=== PATIENT | female | born 1970 | race Caucasian/White ===

== ENCOUNTER 2023-03-15 16:15 | Inpatient (IN) | payer OTHER, SELFPAY ==
--- NOTE | ~2023-03-15 | XR_ITS ---
XR chest 2V DATE: 03/15/2023 17:16 INDICATION: 10 pound weight gain in one week TECHNIQUE: PA and lateral views COMPARISON: None FINDINGS: There is prominence of the fissures consistent with subpleural edema. There is pulmonary va scular congestion and redistribution and there are extensive bilateral pulmonary infiltrates which ar e more prominent centrally and in the lower lung zones, suggesting pulmonary edema. Pneumonia and les s likely aspiration are not excluded. No apparent pleural effusion. No pneumothorax. Mild bilateral apical capping. Heart size appears within normal range. Scoliosis of the thoracic and lumbar spine. IMPRESSION: Pulmonary vascular congestion, subpleural edema, extensive bilateral pulmonary infiltrate s suggesting pulmonary edema. Pneumonia is not excluded. Reviewed, dictated and finalized at location B. CARE MANAGER IMPRESSION: Pulmonary vascular congestion, subpleural edema, extensive bilatera l pulmonary infiltrates suggesting pulmonary edema. Pneumonia is not excluded.
[2023-03-15 16:17] VITALS: BP 144/91; PULSE 130; RESP 20; TEMP 36.9; O2SAT 93
--- NOTE | 2023-03-15 16:20 | ECG_ITS ---
Measurements Intervals [place] Rate: 123 P: 27 OK: 157 QRS: 5 QRSD: 77 T: 13 QT: 318 QTc: 457 Interpretive Statements SINUS TACHYCARDIA LOW QRS VOLTAGE IN PRECORDIAL LEADS CONSIDER ANTERIOR INFARCT, AGE INDETERMINATE CONSIDER INFERIOR INFARCT, AGE INDETERMINATE ABNORMAL ECG NO PREVIOUS ECG AVAILABLE FOR COMPARISON Electronically Signed On 03-15-2023 18:47:01 YARDING SUPERVISOR by Be Mccann D.O.
[2023-03-15 16:37] LABS: Basophils Absolute Auto 0.1 K/mm3 (0.0-0.1); Basophils Percent Auto 0.3 % (0.2-1.2); Eosinophils Absolute Auto 0.2 K/mm3 (0-0.3); Eosinophils Percent Auto 1.3 % (0-4.4); Hematocrit 32.2 % (37.0-47.0); Hemoglobin 10.2 g/dL (12.0-15.0); Immature Granulocyte Absolute 0.07 K/mm3 (0.00-0.031); Immature Granulocyte Percent A 0.4 % (0-0.5); Lymphocytes Absolute Auto 1.29 K/mm3 (0.9-3.2); Mean Corpuscular HGB Conc 31.7 g/dl (32-36); Mean Corpuscular Hemoglobin 26.4 pg (26-34); Mean Corpuscular Volume 83.2 fl (80-100); Mean Platelet Volume 9.6 fl (7.4-10.4); Monocytes Absolute Auto 0.8 K/mm3 (0.1-0.6); Monocytes Percent Auto 4.7 % (2.6-8.5); Neutrophils Absolute Auto 13.8 K/mm3 (1.3-6.7); Neutrophils Percent Auto 85.3 % (45.5-73.1); Nucleated Red Blood Cells Perc 0.1 % (0.0-0.2); Platelet Count Result 273 k/mm3 (150-375); Red Blood Count 3.87 M/mm3 (4.2-5.4); Red Cell Distribution Width 14.5 % (11.5-14.5); White Blood Count 16.2 K/mm3 (4.5-10.0)
[2023-03-15 16:48] LABS: INR 1.1; Prothrombin Time 14.3 Seconds (11.1-14.7)
[2023-03-15 16:49] LABS: Alanine Aminotransferase 58 U/L (6-35); Albumin Level 4.1 g/dL (3.5-5.1); Alkaline Phosphatase 82 U/L (38-126); Anion Gap 9 mmol/L (8-16); Aspartate Amino Transferase 94 U/L (14-36); Bilirubin,Total 0.6 mg/dL (0.2-1.3); Blood Urea Nitrogen 6 mg/dL (7-17); Calcium 8.6 mg/dL (8.4-10.2); Carbon Dioxide 30 mmol/L (22-30); Chloride 95 mmol/L (98-107); Estimated CRCL calculation 109 ml/min; Estimated Glomerular Filt Rate > 60; Glucose 124 mg/dL (65-110); Partial Thromboplastin Time 26.3 SECONDS (22.3-36.8); Potassium 3.8 mmol/L (3.4-5.0); Sodium 134 mmol/L (137-145)
[2023-03-15 16:59] LABS: NT Pro B Type Natriuretic Pept 588 pg/mL (19.9-100); Troponin I < 0.012 ng/mL (0.000-0.034)
[2023-03-15 18:47] VITALS: BP 111/74; PULSE 120; RESP 20; O2SAT 96
--- NOTE | 2023-03-15 19:22 | ED.GENADULT ---
HPI - General Adult General Chief complaint: Unspecified Stated complaint: swelling to hands Time Seen by Provider: 03/15/23 19:11 History of Present Illness HPI narrative: This is a 52-year-old female fibromyalgia psychiatric illness presenting ED with swelling. Patient notes she has had swelling of her feet hands the last week. He also notes that she is having shortness of breath on exertion. No fever chills chest pain abdominal pain urinary symptoms. No history of CHF. Related Data Allergies Allergy/AdvReac Type Severity Reaction Status Date / Time iodine Allergy Unknown Stopped Verified 03/15/23 18:50 Breathing Penicillins Allergy Unknown Hives Verified 03/15/23 18:50 Sulfa (Sulfonamide Allergy Swelling Verified 03/15/23 18:50 Antibiotics) [facility] Past Medical History Medical History (Updated 03/15/23 @ 21:32 by Danny Chan MD) Bipolar disorder Fibromyalgia Exam Narrative: APPEARANCE: No apparent distress. Head: atraumatic. EYES: EOMI, NOSE: Atraumatic NECK: Trachea midline RESPIRATORY: No increased rate of breathing, scattered crackles at the lung bases CARDIOVASCULAR: Tachycardic, pitting edema of the legs and mild edema hands ABDOMINAL: Non-distended MUSCULOSKELETAl: No obvious deformities NEURO: Alert. Moving 4/4 extremities SKIN:: Warm, dry. Normal color PSYCHIATRIC: Normal affect Course Vital Signs Vital signs: Vital Signs Temperature 98.5 F 03/15/23 16:17 Pulse Rate 130 H 03/15/23 16:17 Respiratory Rate 20 03/15/23 16:17 Blood Pressure 144/91 H 03/15/23 16:17 Pulse Oximetry 93 03/15/23 16:17 Oxygen Delivery Room Air 03/15/23 16:17 Temperature 98.5 F 03/15/23 16:17 Pulse Rate 120 H 03/15/23 18:47 Respiratory Rate 20 03/15/23 18:47 Blood Pressure 111/74 03/15/23 18:47 Pulse Oximetry 94 03/15/23 20:59 Oxygen Delivery Nasal Cannula 03/15/23 20:59 Oxygen Flow Rate 2 03/15/23 20:59 Medical Decision Making MDM Narrative Medical decision making narrative: -Course: This is a 52-year-old female presenting with pitting edema of the lower extremities and dyspnea on exertion. Chest x-ray showed pulmonary edema versus pneumonia. BNP was 588. WBC 16. Attempted point of care echocardiogram but due to patient's body habitus was unable to clearly visualize the heart. Viral swabs negative. Patient will be given Lasix for heart failure and covered for community-acquired pneumonia until a definitive diagnosis is determined. Patient will be admitted the hospital for evaluation. -DDX includes but is not limited to: New onset heart failure, community-acquired interstitial lung disease viral syndrome -Co-morbidities complicating care: Psychiatric illness, fibromyalgia, anxiety -Social determinants of health: Stable due to psychiatric illness, lives in apartment -Independent interpretation of studies: White count 16. Metabolic panel showed slight hyponatremia and hypochloremia. BNP elevated 580. Troponins negative Chest x-ray showed pulmonary edema although pneumonia cannot be excluded. Independent EKG interpretation: Rhythm [sinus], Rate [123], [place] -[normal], [place] -[normal], QRS [narrow], QTC [normal], T waves -[negative for concerning inversions], ST Segments - [Negative for concerning elevations] Final interpretations: Sinus tachycardia -Discussion of Management/Consultants: Chelsea-hospitalist -Interventions: 40 mg IV Lasix, ceftriaxone, azithromycin, Home dose Valium 5 mg for anxiety -Shared decision making / Disposition: Admitted Vital Signs Vital Signs: Vital Signs Temperature 98.5 F 03/15/23 16:17 Pulse Rate 130 H 03/15/23 16:17 Respiratory Rate 03/15/23 16:17 Blood Pressure 144/91 H 03/15/23 16:17 Pulse Oximetry 93 03/15/23 16:17 Oxygen Delivery Room Air 03/15/23 16:17 Temperature 98.5 F 03/15/23 16:17 Pulse Rate 120 H 03/15/23 18:47 Respiratory Rate 03/15/23 18:47 Blood Pressure 111
[2023-03-15 20:59] VITALS: O2SAT 89; O2SAT 94
[2023-03-15] MEDS: FUROSEMIDE INJ 40 MG/4 ML VIAL IV PUSH (21:01)
[2023-03-15 21:14] LABS: Influenza A QL RT-PCR Negative (Negative); Influenza B QL RT-PCR Negative (Negative); RSV RNA, RT-PCR Negative (Negative); SARS-CoV-2 RNA PCR Negative (Negative)
[2023-03-15] MEDS: NICOTINE (*PBKC) 21 MG PATCH 1 PATCH TRANSDERM (22:50)
[2023-03-15] MEDS: AZITHROMYCIN 500 MG/NS 250 ML 500 MG/250 ML BAG 250 MG IVPB (22:50)
--- NOTE | 2023-03-15 23:15 | PC.NURSE ---
Attempted to call Antonietta, pt caregiver at [place], at [phone] in response to her call earlier about an update. No response.
--- NOTE | 2023-03-15 23:37 | PC.NURSE ---
Assumed care of pt from [facility] at this time.
[2023-03-16] VITALS (13 sets, daily range): BP systolic 100–117; BP diastolic 65–68; PULSE 91–145; RESP 17–18; TEMP 36.5–36.9; O2SAT 93–98; BMI 28.9
--- NOTE | 2023-03-16 | ECHO_ITS ---
Patient Info Name: Orquidea Mckeon Age: 52 years : 1970 Gender: Female Ht: 68 in Wt: 190 lbs BSA: 2.05 m2 HR: 94 bpm BP: 117 / 68 mmHg Heart Rhythm: Sinus Rhythm Technical Quality: Fair Exam Date: 03/16/2023 10:07 AM Exam Location: Echo Lab Exam Room: 241 Patient Status: Inpatient Admit Date: 03/15/2023 Staff Ordering Physician: Nelia Tran MD Private Investigator Surveillance: Indira Jones RDCS Attending Provider: Nelia Tran MD Referring Physician: Chelsea KINGSTON; Exam Type: CA echo doppler color flow Study Info Indications - sob Complete two-dimensional, color flow and Doppler transthoracic echocardiogram is performed. Summary 1. Complete two-dimensional, color flow and Doppler transthoracic echocardiogram is performed. 2. Normal left ventricular size and thickness with good contractility of all segments. Estimated ejection fraction 65%. Normal diastolic function. 3. No significant valve disease. 4. Normal estimated pulmonary pressure. 5. Normal sinus rhythm. Left Ventricle Left ventricular chamber dimension is normal. Left ventricular systolic function is normal, estimated at 65-70%. There is no increased left ventricular wall thickness. Left ventricular septal wall motion is normal. The left ventricular diastolic function is normal. Right Ventricle Right ventricular chamber dimension is normal. Right ventricular systolic function is normal. Left Atria Left atrial chamber dimension is normal. Right Atria Right atrial chamber dimension is normal. Aortic Valve The aortic valve is trileaflet. There is no aortic valve sclerosis. There is no aortic valve stenosis. There is no aortic valve regurgitation. Pulmonic Valve The pulmonic valve is normal. There is no pulmonic valve stenosis. There is no pulmonic regurgitation. Mitral Valve The mitral valve has normal leaflets. There is no mitral valve stenosis. There is no mitral valve regurgitation. Tricuspid Valve The tricuspid valve leaflets are normal. There is no significant tricuspid valve stenosis. There is trace tricuspid valve regurgitation. No pulmonary hypertension, estimated pulmonary arterial systolic pressure is 31 mmHg. Pericardium/Pleural The pericardium appears normal. There is no pericardial effusion. Inferior Vena Cava Normal inferior vena cava with >50% collapse upon inspiration consistent with Empty right atrial pressure, 31 mmHg. Aorta The aortic root size at the sinus of Valsalva is normal. The prox ascending aorta size is normal. Left Ventricular Outflow Tract Name Value Normal LVOT 2D LVOT Diameter 2.0 cm LVOT Doppler LVOT Peak Gradient 5 mmHg LVOT Mean Gradient 4 mmHg LVOT VTI 23 cm LVOT VTI/AV VTI Ratio 1.1 LVOT Stroke Volume 70 ml LVOT CO 16.8 l/min LVOT CI 8.2 l/min/m2 Pulmonic Valve Name Value Normal
--- NOTE | 2023-03-16 00:15 | PC.NURSE ---
Pt stated she wanted to leave and did not want to be here anymore when attempting to take pt upstairs. Hospitalist, Dr. Tran notified and stated she would come down to speak to pt.
--- NOTE | 2023-03-16 00:45 | ADMGEN ---
This patient, Orquidea Mckeon, was admitted to Medical Room 241-. Patient/family oriented to hospital policies and general routines including ID bracelet, bed and alarms, visiting hours, pain management, procedures, bathroom and other care routines, personal items, smoking policy, room service/diet, and visiting hours. Information on how to activate the Rapid Response Team has been discussed. Patient/Family are encouraged to report perceived risks to care and to ask questions if they do not understand what they are told or what they should do.
[2023-03-16] MEDS: DULoxetine HCL 60 MG CAPSULE.DR PO (01:07)
[2023-03-16] MEDS: ARIPiprazole 10 MG TABLET 20 MG PO (01:07)
[2023-03-16] MEDS: GABAPENTIN 100 MG CAPSULE PO (01:07)
[2023-03-16] MEDS: LORazepam INJ (*CRX) 2 MG/ML VIAL 1 MG IV PUSH (01:08)
--- NOTE | 2023-03-16 01:27 | PM.IMHP ---
H&P: HPI History of Present Illness Date/Time: 03/16/23 01:27 Chief Complaint: sob Narrative: This is a 52-year-old female with past medical history significant for bipolar disorder, fibromyalgia. Patient presents to the emergency room due to shortness of breath, fevers, chills, night sweats, poor appetite, body aches and pain. Patient tends to be circumstantial can not really contribute much to history taking. Preliminary workup was significant for chest x-ray with lung infiltrates. Patient has been admitted for further evaluation management and treatment XR chest 2V DATE: 03/15/2023 17:16 INDICATION: 10 pound weight gain in one week? TECHNIQUE: PA and lateral views? COMPARISON: None? FINDINGS: There is prominence of the fissures consistent with subpleural edema. There is pulmonary vascular congestion and redistribution and there are extensive bilateral pulmonary infiltrates which are more prominent centrally and in the lower lung zones, suggesting pulmonary edema. Pneumonia and less likely aspiration are not excluded. No apparent pleural effusion. No pneumothorax. Mild bilateral apical capping. Heart size appears within normal range. Scoliosis of the thoracic and lumbar spine. IMPRESSION: Pulmonary vascular congestion, subpleural edema, extensive bilateral pulmonary infiltrates suggesting pulmonary edema. Pneumonia is not excluded.? Review of Systems Constitutional: Constitutional: Reports chills, Reports fatigue, Reports fever(s), Reports malaise, Reports night sweats, Reports poor appetite and Reports weakness Eyes: Eyes: Denies change in vision ENT: Denies dysphagia, Denies otalgia and Denies odynophagia Cardiovascular: Cardiovascular: Denies chest pain, Denies radiating jaw, neck or arm pain and Denies palpitations Respiratory: Respiratory: Denies cough, Denies excessive phlegm production and Reports dyspnea Gastrointestinal: Gastrointestinal: Denies coffee ground emesis, Denies heartburn, Denies diarrhea, Denies nausea and Denies vomiting Genitourinary: Genitourinary: Denies dysuria Musculoskeletal: Musculoskeletal: Reports myalgias Integumentary/Breasts: Skin/Breast: Denies rash Neurologic: Denies abnormal gait, Denies vertigo, Denies dizziness and Denies Sensory deficit (Neuro) Psychiatric: Psychiatric: Reports no additional psychiatric complaints and Reports as per HPI Endocrine: Endocrine: Denies fatigue, Denies heat intolerance, Denies polyphagia, Denies polydipsia, Denies polyuria and Denies palpitations Hematologic/Lymphatic: Hematologic/Lymphatic: Reports no additional hematologic/lymphatic complaints and Reports as per HPI Allergic/Immunologic: Allergic/Immunologic: Reports no additional allergic/immunologic complaints and Reports as per HPI [facility] Past Medical History Medical History (Updated 03/16/23 @ 01:36 by Nelia Tran MD) Bipolar disorder Fibromyalgia Social History Social History Smoking packs per day: 2 Smoking cigarettes per day: 40.0 Smoking status: Former smoker Tobacco type: cigarettes Alcohol intake: never Substance use: never Substance use type: does not use Lack of Transportation: No Lack of Food: Never True Current Housing: I Have Housing Concerned About Future Housing: No Difficulty Paying Gas/Electric Bills: No Difficulty Paying for Meds: No Currently Unemployed: YES Education: High School Diploma/GED Difficulty w/ Childcare or Family Care: No Spiritual care concerns: No Meds Home Medications and Allergies Home Medications Medication Instructions Recorded Confirmed Type Gas Relief (simethicone) 2 tab-cap PO Q12H 03/16/23 03/16/23 History aripiprazole 20 mg tablet 20 mg PO DAILY 03/16/23 03/16/23 History baclofen 10 mg PO PRN PRN Pain 03/16/23 03/16/23 History baclofen 10 mg tablet 10 mg PO DAILY 03/16/23 03/16/23 History buprenorphine 300 mg/1.5 mL 300 mg subcut .MONTHLY 03/16/23 03/16/23 History s
--- NOTE | 2023-03-16 06:04 | PC.NURSE ---
PT KEEPS MISSING U-HAT WHEN URINATING
[2023-03-16] MEDS: BUPRENORPHINE/NALOXONE (*CRX) 4 MG/1 MG SL FILM 1 EACH SUBLINGUAL ×2 (07:48→20:46)
[2023-03-16] MEDS: IBUPROFEN 600 MG TABLET PO ×2 (08:22→12:09)
[2023-03-16] MEDS: diazePAM (*CRX) 5 MG TABLET PO ×2 (08:22→12:09)
[2023-03-16] MEDS: BACLOFEN 10 MG TABLET PO (10:08)
--- NOTE | 2023-03-16 10:16 | PM.IMPN ---
Progress Note: A&P Assessment and Plan (1) Multilobar lung infiltrate: Code(s): R91.8 - Other nonspecific abnormal finding of lung field Status: Acute Assessment and Plan: Started on Rocephin and azithromycin 03/15 for possible community-acquired pneumonia (2) Dyspnea: Code(s): R06.00 - Dyspnea, unspecified Status: Acute Assessment and Plan: Check echo Appears to be at baseline (3) Fibromyalgia: Code(s): M79.7 - Fibromyalgia Status: Acute (4) Bipolar disorder: Code(s): F31.9 - Bipolar disorder, unspecified Status: Acute Assessment and Plan: Patient requesting to be weaned off of medications, will trial lower doses Defer full weaning to outpatient management Plan DVT prophylaxis with SCDs GI prophylaxis not indicated Code status full code Subjective Date/time seen: 03/16/23 10:16 Interval history: 52-year-old female with history of bipolar, fibromyalgia is presenting with edema and currently being treated for possible pneumonia. No overnight events noted. No chest pain or shortness of breath. No nausea, vomiting or diarrhea. No fevers or chills. Patient would like to wean off some of her psychiatric medications that she is taking per chestnut. She states she always feels a little swollen blames the Neurontin for this. She denies cough or shortness of breath. Review of Systems Review of Systems: 12 point review of systems was assessed and was negative except as noted in the HPI Exam Narrative: General: No acute distress, alert and oriented per baseline HEENT: Atraumatic, normocephalic, mucous membranes moist CV: Regular rate and rhythm, S1, S2 Lungs: Clear to auscultation bilaterally, no rales or crackles noted, no wheezes, good air entry Abdomen: Soft, nontender, nondistended Extremities: Normal to inspection Skin: No rashes noted, no lesions or wounds seen Psych: Euthymic, normal affect Objective Data Vital Signs Vital Signs: Vital Signs - 24 hr 03/15/23 16:17 03/15/23 18:47 03/15/23 20:59 Temperature 98.5 F Pulse Rate 130 H 120 H Respiratory Rate 20 20 Blood Pressure 144/91 H 111/74 Pulse Oximetry 93 96 89 L Oxygen Delivery Room Air Room Air Oxygen Flow Rate 03/15/23 20:59 03/16/23 00:50 03/16/23 01:12 Temperature 98.4 F Pulse Rate 100 145 H Respiratory Rate 18 Blood Pressure 117/68 Pulse Oximetry 94 93 Oxygen Delivery Nasal Cannula Oxygen Flow Rate 2 03/16/23 01:24 03/16/23 02:28 03/16/23 04:00 Temperature Pulse Rate 118 H 122 H Respiratory Rate Blood Pressure Pulse Oximetry 97 Oxygen Delivery Nasal Cannula Oxygen Flow Rate 2 03/16/23 06:00 Temperature 97.7 F Pulse Rate 104 H Respiratory Rate 18 Blood Pressure 100/68 Pulse Oximetry 96 Oxygen Delivery Oxygen Flow Rate Intake/Output Intake/Output: Intake & Output 03/13/23 03/14/23 03/15/23 03/16/23 23:59 23:59 23:59 23:59 Intake Total 50 250 Balance 50 250 Meds/Results Medications: Active Medications Generic Name Dose Route Start Last Admin Trade Name Freq PRN Reason Stop Dose Admin Acetaminophen 1,000 mg 03/16/23 01:36 Acetaminophen 500 Mg Tablet PO Q6H PRN Mild Pain (1-3) or Fever Aripiprazole 20 mg 03/16/23 09:00 03/16/23 08:27 Aripiprazole 10 Mg Tablet PO Not Given QAM LESLIE Artificial Tears 1 drop 03/16/23 01:50 Artificial Tears Ophth Soln 15 Ml Bottle EACH EYE Q12H PRN Dry Eye(s) Baclofen 10 mg 03/16/23 09:50 03/16/23 10:08 Baclofen 10 Mg Tablet PO 10 mg DAILY PRN Administration Pain Buprenorphine/Naloxone 1 each 03/16/23 09:00 03/16/23 07:48 Buprenorphine/Naloxone (*Crx) 4 Mg/1 Mg Sl Film SUBLINGUAL 1 each Q12HR LESLIE Administration Buspirone HCl 10 mg 03/16/23 09:00 03/16/23 08:28 Buspirone Hcl 10 Mg Tablet PO Not Given Q12HR LESLIE Diazepam 5 mg
--- NOTE | 2023-03-16 12:07 | PHAR ---
HOME MED: VILAZODONE 10 MG TABLET, TAKE 1 TABLET BY MOUTH DAILY WITH FOOD. VERIFIED BY PHARMACY
[2023-03-16] MEDS: PSYLLIUM SUGAR FREE POWDER PACKET 1 PACKET PO ×2 (12:09→20:49)
--- NOTE | 2023-03-16 14:53 | PC.NURSE ---
On 03/16/23, the student, [Rebeca Shahid], provided care and completed [facility] documentation on this patient. I have reviewed the student's documentation and agree with the findings.
[2023-03-16] MEDS: NICOTINE (*PBKC) 21 MG PATCH 1 PATCH TRANSDERM (14:58)
[2023-03-16] MEDS: diazePAM (*CRX) 2.5 MG TABLET PO (18:05)
[2023-03-16] MEDS: AZITHROMYCIN 500 MG/NS 250 ML 500 MG/250 ML BAG 250 MG IVPB (20:46)
[2023-03-17] VITALS (7 sets, daily range): BP systolic 112–116; BP diastolic 77–78; PULSE 91–122; RESP 17; TEMP 36.6; O2SAT 91–99
[2023-03-17] MEDS: NICOTINE (*PBKC) 21 MG PATCH 1 PATCH TRANSDERM (09:07)
[2023-03-17] MEDS: BUPRENORPHINE/NALOXONE (*CRX) 4 MG/1 MG SL FILM 1 EACH SUBLINGUAL (09:07)
[2023-03-17] MEDS: diazePAM (*CRX) 2.5 MG TABLET PO ×2 (09:07→13:29)
--- NOTE | 2023-03-17 12:27 | PM.IMPN ---
Progress Note: A&P Assessment and Plan (1) Multilobar lung infiltrate: Code(s): R91.8 - Other nonspecific abnormal finding of lung field Status: Acute Assessment and Plan: Admit to regular medical floor Patient started on Rocephin and Zithromax Cultures in progress (2) Dyspnea: Code(s): R06.00 - Dyspnea, unspecified Status: Acute Assessment and Plan: Likely secondary to pneumonia Continue to monitor Breathing treatments (3) Fibromyalgia: Code(s): M79.7 - Fibromyalgia Status: Acute Assessment and Plan: Resume home meds (4) Bipolar disorder: Code(s): F31.9 - Bipolar disorder, unspecified Status: Acute Assessment and Plan: Resume home meds Subjective Date/time seen: 03/17/23 12:27 Interval history: 52-year-old female with history of bipolar, fibromyalgia is presenting with edema and currently being treated for possible pneumonia. No overnight events noted. No chest pain or shortness of breath. No nausea, vomiting or diarrhea. No fevers or chills. Patient would like to wean off some of her psychiatric medications that she is taking per chestnut. Review of Systems Review of Systems: 12 point review of systems was assessed and was negative except as noted in the HPI Exam Narrative: General: No acute distress, alert and oriented per baseline HEENT: Atraumatic, normocephalic, mucous membranes moist CV: Regular rate and rhythm, S1, S2 Lungs: Clear to auscultation bilaterally, no rales or crackles noted, no wheezes, good air entry Abdomen: Soft, nontender, nondistended Extremities: Normal to inspection Skin: No rashes noted, no lesions or wounds seen Psych: Euthymic, normal affect Objective Data Vital Signs Vital Signs: Vital Signs - 24 hr 03/16/23 13:18 03/16/23 13:46 03/16/23 16:00 Temperature 97.7 F Pulse Rate 102 H 92 Respiratory Rate 18 Blood Pressure 105/65 Pulse Oximetry 97 93 Oxygen Delivery Room Air 03/16/23 20:32 03/16/23 20:00 03/17/23 00:00 Temperature 98.0 F Pulse Rate 91 91 91 Respiratory Rate 17 17 Blood Pressure 101/67 Pulse Oximetry 98 98 Oxygen Delivery Room Air 03/17/23 05:16 03/17/23 04:00 Temperature 97.9 F Pulse Rate 99 96 Respiratory Rate 17 Blood Pressure 112/77 Pulse Oximetry 91 Oxygen Delivery Intake/Output Intake/Output: Intake & Output 03/14/23 03/15/23 03/16/23 03/17/23 23:59 23:59 23:59 23:59 Intake Total 50 2830 790 Balance 50 2830 790 Meds/Results Medications: Active Medications Generic Name Dose Route Start Last Admin Trade Name Freq PRN Reason Stop Dose Admin Acetaminophen 1,000 mg 03/16/23 01:36 Acetaminophen 500 Mg Tablet PO Q6H PRN Mild Pain (1-3) or Fever Aripiprazole 20 mg 03/16/23 09:00 03/17/23 09:11 Aripiprazole 10 Mg Tablet PO Not Given QAM LESLIE Artificial Tears 1 drop 03/16/23 01:50 Artificial Tears Ophth Soln 15 Ml Bottle EACH EYE Q12H PRN Dry Eye(s) Buprenorphine/Naloxone 1 each 03/16/23 09:00 03/17/23 09:07 Buprenorphine/Naloxone (*Crx) 4 Mg/1 Mg Sl Film SUBLINGUAL 1 each Q12HR LESLIE Administration Buspirone HCl 5 mg 03/16/23 21:00 03/17/23 09:11 Buspirone Hcl 5 Mg Tablet PO Not Given Q12HR LESLIE Diazepam 2.5 mg 03/16/23 17:00 03/17/23 09:07 Diazepam (*Crx) 2.5 Mg Tablet PO 2.5 mg TID LESLIE Administration Duloxetine HCl 40 mg 03/16/23 09:00 03/17/23 09:12 Duloxetine Hcl 20 Mg Capsule.Dr PO 03/21/23 09:01 Not Given DAILY LESLIE Ferrous Sulfate 325 mg 03/16/23 09:00 03/17/23 09:12 Ferrous Sulfate [address] BY MOUTH Not Given DAILY LESLIE Gabapentin 100 mg 03/16/23 13:50 03/17/23 09:12 Gabapentin 100 Mg Capsule PO Not Given TID LESLIE Ceftriaxone Sodium 1 gm in 50 mls @ 100 mls/hr 03/16/23 21:00 03/16/23 21:45 Rocephin 1 Gm/Ns 50 Ml IVPB Infused Q24H LESLIE Infusion Azithromyc
--- NOTE | 2023-03-17 13:04 | PC.NURSE ---
On 03/17/23, the student, [Rebeca Shahid], provided care and completed [facility] documentation on this patient. I have reviewed the student's documentation and agree with the findings.
--- NOTE | 2023-03-17 14:13 | PM.DS ---
DS: Admitting Diagnosis Discharge Date 03/17/23 Admitting Diagnosis edema, sob DS: Discharge Diagnosis Discharge Diagnosis (1) Multilobar lung infiltrate: Code(s): R91.8 - Other nonspecific abnormal finding of lung field Status: Acute Assessment and Plan: Admit to regular medical floor Patient started on Rocephin and Zithromax Cultures in progress (2) Dyspnea: Code(s): R06.00 - Dyspnea, unspecified Status: Acute Assessment and Plan: Likely secondary to pneumonia Continue to monitor Breathing treatments (3) Fibromyalgia: Code(s): M79.7 - Fibromyalgia Status: Acute Assessment and Plan: Resume home meds (4) Bipolar disorder: Code(s): F31.9 - Bipolar disorder, unspecified Status: Acute Assessment and Plan: Resume home meds DS: Summary Hospital Course Hospital Course: 52-year-old female with history of bipolar, fibromyalgia is presenting with edema and currently being treated for possible pneumonia. Echo summary 1. Complete two-dimensional, color flow and Doppler transthoracic echocardiogram is performed. 2. Normal left ventricular size and thickness with good contractility of all segments. Estimated ejection fraction 65%. Normal diastolic function. 3. No significant valve disease. 4. Normal estimated pulmonary pressure. 5. Normal sinus rhythm. Patient's symptoms improved with antibiotics. She requested to be weaned off of some of her psychiatric medications. All symptoms improved, she was discharged in stable condition with close outpatient follow-up. Please see above and med rec for details. Time Spent with Patient Time attestation: Total time spent providing and/or coordinating discharge services: Exam Narrative: General: No acute distress, alert and oriented per baseline HEENT: Atraumatic, normocephalic, mucous membranes moist CV: Regular rate and rhythm, S1, S2 Lungs: Clear to auscultation bilaterally, no rales or crackles noted, no wheezes, good air entry Abdomen: Soft, nontender, nondistended Extremities: Normal to inspection Skin: No rashes noted, no lesions or wounds seen Psych: Euthymic, normal affect DS: Data Data Completed and Pending Labs on day of discharge: Preliminary micro results at discharge 03/15/23 22:11 Blood Culture - Preliminary Blood 03/15/23 22:11 Blood Culture - Preliminary Blood Discharge Plan Discharge Attending physician on discharge: Julia Cortez Discharging Clinician: Julia Cortez Patient Disposition: Home, Self-Care Activity: as tolerated Diet: as tolerated Patient Instructions: Antibiotic Form Stand Alone Forms: General Discharge Information Follow-up/Referrals: PHYSICIAN NOT ON STAFF,NONSTAFF [Primary Care Provider] - Discharge Medications: New azithromycin 250 mg tablet 250 mg PO DAILY 3 Days Qty: 3 0RF cefdinir 300 mg capsule 300 mg PO Q12H 5 Days Qty: 10 0RF Continued baclofen 10 mg Tablet 10 mg PO DAILY gabapentin 100 mg capsule 200 mg PO TID Rx Instructions: 12/11/20 ferrous sulfate 325 mg (65 mg iron) Capsule, Extended Release 325 mg PO DAILY aripiprazole 20 mg tablet 20 mg PO DAILY Metamucil Fiber Singles 3.4 gram powder in packet 1 packet PO Q12H vilazodone 10 mg Tablet 10 mg PO DAILY buprenorphine-naloxone 4-1 mg Film 1 film sublingual Q12H duloxetine 40 mg capsule,delayed release(DR/EC) 40 mg PO DAILY Rx Instructions: for 7 days starting 03/15/23 Sublocade 300 mg/1.5 mL Solution, Extended Rel Syringe 300 mg SUBCUT .MONTHLY Rx Instructions: 03/17 due next Gas Relief (simethicone) 2 tab-cap PO Q12H Rx Instructions: 12/07 baclofen 10 mg PO PRN PRN (Reason: Pain) Rx Instructions: HS carboxymethylcellulose 1 g EACH EYE Q12H Rx Instructions: 1 drop each ey
--- NOTE | 2023-03-17 15:01 | HOMEO2EVAL ---
Evaluation was performed at [facility] Home Oxygen Evaluation RC: Home Oxygen (O2) Evaluation Start: 03/17/23 10:02 Freq: ONCE Status: Active Protocol: RPE Activity Type Activity Date Activity User E-sign Co-sign Detail Recorded Client Recorded Date Recorded By Document 03/17/23 14:30 DJO [email or web address] 03/17/23 15:01 DJO Document 03/17/23 14:35 [email or web address] [email or web address] 03/17/23 15:01 DJO 03/17/23 03/17/23 14:30 14:35 Home O2 Evaluation [Oxygen] -Test Phase Resting Exercise -Oxygen Delivery Room Air Room Air [Pulse Oximetry] -Pulse Oximetry (90-100 %) 97 99 [Pulse Rate] -Pulse Rate (60-100 beats/min) 92 122 H [Evaluation] -Activity Tolerance Excellent [Charges] -Treatment Charges O2 Evaluation - Inpatient
--- NOTE | 2023-03-17 15:02 | PCRCNOTE ---
HOME O2 EVAL COMPLETE, NO REQUIREMENTS
== END 2023-03-17 16:25 | disposition home or self-care (01) | DRG 139 ==
LOC: ANHED 20:29 → ANH3MEDSUR 22:46 → ANH2MED 23:55
PROVIDERS: Emergency Medicine; Admitting Provider Internal Medicine; Emergency Provider Emergency Medicine; Visit Provider Student in an Organized Health Care Education/Training Program
DX: J18.9 Pneumonia, unspecified organism (principal); F31.9 Bipolar disorder, unspecified; M79.7 Fibromyalgia; R91.8 Other nonspecific abnormal finding of lung field; R06.00 Dyspnea, unspecified; Z20.822 Contact with and (suspected) exposure to COVID-19; Z87.891 Personal history of nicotine dependence
CPT/HCPCS: 36415; 71046; 80053; 83880; 84484; 85025; 85610; 85730; 87040; 87637; 93005; 93306; 94618; 96374; 99285; A9270; J0456; J0696; J1940; J2060